=== PATIENT | female | born 1935 | race Caucasian/White ===

== ENCOUNTER 2017-10-20 14:06 | Inpatient (IN) | payer OTHER, MEDICARE ==
[~2017-10-20] VITALS: Ht 149.9 cm; Wt 68.1 kg
--- NOTE | ~2017-10-20 | EKG ---
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: [facility] : 1935 Requested By: Karli Irby Order Number: [id number] MD: Chuck Vasquez Measurements Intervals [place] Rate: 54 P: 28 [place]: 129 QRS: -40 QRSD: 98 T: 42 QT: 419 QTc: 398 Interpretive Statements Sinus bradycardia Left anterior fascicular block Left ventricular hypertrophy Compared to ECG 05/24/2013 18:33:31 No significant change was found Electronically Signed On 10-21-2017 8:30:12 CDT by Chuck Vasquez [email or web address] <ELECTRONICALLY SIGNED> By: Chuck Vasquez MD, [facility] 10/21/17 0830 1418 1418 Chuck Vasquez MD, [facility] /EPI
--- NOTE | ~2017-10-20 | 2DMMODE ---
[facility] [address] [place] [address] 2 D/M-MODE ECHOCARDIOGRAM Name: SHAY QUINTERO Veena Room #: 215-P [facility] IN M.R.#: [id number] Admission: 10/20/17 Attend Phys: Shaun Castillo MD Discharge: Date of : 37 Date of Service: 10/22/17 1256 Report #: [id number] THIS REPORT FOR: //name// APPROVED REPORT Study performed: 10/22/2017 12:17:04 EXAM: Comprehensive 2D, Doppler, and color-flow Echocardiogram Patient Location: Echo lab Room #: [facility] Status: routine BSA: 1.63 HR: 57 bpm BP: 105/65 mmHg Rhythm: NSR Other Information Study Quality: Good Indications Short of breath. Pulmonary HTN and/or possible shunt. Echo Enhancing Agent Indication: Rule out Shunt Agent(s) / Amount(s) Used: Agitated Saline 6 cc 2D Dimensions RVDd: 30.08 mm LVEF(%): 64.36 (>50%) IVSd: 11.06 (7-11mm) LVOT Diam: 19.75 (18-24mm) LVDd: 40.17 mm PWd: 9.28 (7-11mm) Ascending Ao: 28.95 (22-36mm) LVDs: 26.25 (25-40mm) Aortic Root: 32.18 mm Kulkarni's LVEF: 64.36 % Volumes Left Atrial Volume (Systole) Single Plane 4CH: 23.78 mL Single Plane 2CH: 30.67 mL LA ESV Index: 18.00 mL/m2 Aortic Valve AoV Peak Sheldon.: 1.37 m/s AO Peak Gr.: 7.52 mmHg LVOT Max P.28 mmHg LVOT Max V: 1.03 m/s JEOVANNY Vmax: 2.31 cm2 [facility] [place] [address] 2 D/M-MODE ECHOCARDIOGRAM Name: SHAY QUINTERO Room #: 215-P [facility]..#: [id number] Admission: 10/20/17 Attend Phys: Shaun Castillo MD Discharge: Date of : 37 Date of Service: 10/22/17 1256 Report #: [id number] Mitral Valve E/A Ratio: 0.7 MV Decel. Time: 232.54 ms MV E Max Sheldon.: 0.83 m/s MV A Sheldon.: 1.12 m/s MV PHT: 67.44 ms IVRT: 110.73 ms Pulmonary Valve PV Peak Sheldon.: 0.74 m/s PV Peak Gr.: 2.19 mmHg Pulmonary Vein P Vein S: 0.53 m/s P Vein A: 0.34 m/s P Vein D: 0.32 m/s P Vein A Dur.: 92.3 msec P Vein S/D Ratio: 1.66 Tricuspid Valve TR Peak Sheldon.: 2.35 m/s RAP Estimate: 5.00 mmHg TR Peak Gr.: 22.04 mmHg PA Pressure: 27.00 mmHg Left Ventricle The left ventricle is normal size. There is normal LV segmental wall motion. There is normal left ventricular wall thickness. Left ventricular systolic function is normal. LVEF is 55-60%. Mild diastolic dysfunction is present (impaired relaxation pattern). Right Ventricle The right ventricle is normal size. The right ventricular systolic function is normal. Atria The left atrium size is normal. No shunting noted by contrast bubble injection. The right atrium size is normal. Aortic Valve The Aortic valve is mildly sclerotic. Trace to mild aortic regurgitation. There is no aortic valvular stenosis. Mitral Valve The mitral valve is normal in structure. Mild mitral regurgitation. No evidence of mitral valve stenosis[place] [address] 2 D/M-MODE ECHOCARDIOGRAM Name: SHAY QUINTERO Room #: 215-P [facility] IN [facility]#: [id number] Admission: 10/20/17 Attend Phys: Shaun Castillo MD Discharge: Date of : 37 Date of Service: 10/22/17 1256 Report #: [id number] The tricuspid valve is normal in structure. Mild tricuspid regurgitation. Estimated PAP is 27mmHg. Pulmonic Valve Pulmonic valve is not well visualized. Trace pulmonic regurgitation. Great Vessels The aortic root is normal in size. The ascending aorta is normal in size. IVC is normal in size and collapses >50% with inspiration. Pericardium Small pericardial effusion is noted. <Conclusion> The left ventricle is normal size. LVEF is 55-60%. The left atrium size is normal. The right atrium size is normal. No shunting noted by contrast bubble injection. The Aortic valve is mildly sclerotic. Trace to mild aortic regurgitation. The mitral valve is normal in structure. Mild mitral regurgitation. The tricuspid valve is normal in structure. Mild tricuspid regurgitation. Estimated PAP is 27mmHg. Pulmonic valve is not well visualized. Trace pulmonic regurgitation. Small pericardial effusion is noted. <ELECTRONICALLY SIGNED> By: Guido Kam MD 10/22/17 1256 1256 1256 Guido Kam MD /INF
--- NOTE | ~2017-10-20 | HC ---
[facility] [place] [address] CONSULTATION Name: SHAY QUINTERO Room #: 215-P ADM IN M.R.#: [id number] Admission: 10/20/17 Attend Phys: Shaun Castillo MD Discharge: Date of : 37 Report #: [id number] THIS REPORT FOR: //name// CC: Shaun Alanis DATE OF SERVICE: 10/21/2017 REASON FOR CONSULTATION: 1. Dyspnea of 10 days' duration at rest and with exertion. 2. History of reflux. 3. Chest tightness. 4. Leukocytosis. 5. GERD. 6. History of chronic bronchitis. 7. Respiratory alkalosis. 8. Secondhand smoke. 9. Elevated D-dimer. PLAN: It is interesting that this occurred after knee and back injection; however, was not cervical injection. We will evaluate with venous Doppler. We will check an echo to look for pulmonary hypertension or any shunting. We will treat her for reflux. We will monitor her sat overnight, question CHANEL. Her tachycardia may be related to albuterol and we will stop this and use p.r.n. levalbuterol and Pulmicort. Reviewed again CT did not see any emboli with radiologist. HISTORY OF PRESENT ILLNESS: An 82-year-old female in normal state of health when had a knee steroid injection and a lumbar epidural done, about 2-3 days later developed this shortness of breath. No definite chest pain, but epigastric discomfort with a band feeling around. No definite reflux symptoms. No fever or chills. No palpitations. Positive dyspnea with and without exertion. PAST MEDICAL HISTORY AND SURGERIES: Include hysterectomy, tonsillectomy, cholecystectomy. HOME MEDICATIONS: Per chart included pseudoephedrine, sertraline, albuterol, prednisone, DuoNeb, atorvastatin, cholecalciferol, ibuprofen, Protonix, ranitidine, triazolam. ALLERGIES: SULFA. SOCIAL HISTORY: Negative tobacco, but positive history of secondhand smoke. ETOH: None. [facility] [address] [place] [address] CONSULTATION Name: SHAY QUINTERO Room #: [address] [place] [address] [place] [facility].#: [id number] Admission: 10/20/17 Attend Phys: Shaun Castillo MD Discharge: Date of : 37 Report #: [id number] REVIEW OF SYSTEMS: No fever, chills or night sweats. No vision change. Did have a headache initially, not current. No hemoptysis or sputum production. Positive history of chronic bronchitis. Positive reflux. No definite ulcer. GENITOURINARY: No dysuria. PHYSICAL EXAMINATION: EYES: Negative icterus. NECK: Negative JVD. LUNGS: No wheeze or rhonchi. HEART: Regular. ABDOMEN: Bowel sounds present. EXTREMITIES: Showed no edema, but by report on first day she did have edema. DATA: D-dimer initially 1.83. White count 15.3. Hemoglobin 15.5. BUN 23, creatinine 1.1. Lipase 298, albumin 4, no eosinophils. CT did not show any emboli. Did show some atelectasis described. <ELECTRONICALLY SIGNED> By: Caryn Saldaña MD 10/22/17 1550 1813 2328 Caryn Saldaña MD /nt
[~2017-10-20 14:06] MED LIST: ALBUTEROL2.5 MG/0.5; ASPIRIN EC81 M1 PO; AZITHROMYCIN 2250 MG PO; DIAZEPAM 5 MG5 MG PO; HALCION0.125 MG; HYDROCODON-ACE1 EAC7; MULTIVITAMINS1 EAC7 PO; NORCO 5-325 TA1 EACH PO; SUDAFED30 MG PO; VIBRAMYCIN 100100 MG PO; ZOLOFT 50 MG TA50 M1 PO
[2017-10-20 14:08] VITALS: BP 131/74
[2017-10-20] MEDS ORDERED: PREDNISONE 20 M20 MG PO (14:26)
[2017-10-20] MEDS ORDERED: ATORVASTATIN CA40 MG PO (14:27)
[2017-10-20] MEDS ORDERED: IPRAT-ALBUT 0.5-3 ML INH (14:27)
[2017-10-20] MEDS ORDERED: VITAMIN D3400 UNIT PO (14:28)
[2017-10-20] MEDS ORDERED: ALLEGRA-D 12 H1 EAC1 PO (14:28)
[2017-10-20] MEDS ORDERED: IBU600 MG PO (14:28)
[2017-10-20] MEDS ORDERED: ZANTAC 150MG T150 MG PO (14:29)
[2017-10-20] MEDS ORDERED: HALCION0.25 MG PO (14:29)
[2017-10-20] MEDS ORDERED: PROTONIX40 M1 PO (14:29)
[2017-10-20 14:37] LABS: ABSOLUTE NEUTROPHILS 11.1 thou/uL (1.4-8.2); HEMATOCRIT 45.8 % (37.0-47.0); HEMOGLOBIN 15.5 gm/dL (12.0-15.0); LYMPHOCYTES 22.2 % (24.0-44.0); MCH 30.5 pg (26.0-34.0); MCHC 33.9 g/dL (28.0-37.0); MCV 89.9 fL (80.0-100.0); MONOCYTES 5.3 % (1.0-8.0); PLATELET COUNT 331 thou/uL (150-400); POLYS 72.5 % (36.0-66.0); RBC 5.09 mil/uL (4.20-5.00); RDW 14.6 % (10.5-14.5); WBC 15.3 thou/uL (4.0-11.0)
[2017-10-20 14:42] LABS: ANION GAP 13 mmol/L (7-16); BUN 23 mg/dL (7-18); CALCIUM 9.5 mg/dL (8.5-10.1); CHLORIDE 104 mmol/L (98-107); CO2 24 mmol/L (21-32); CREATININE 1.1 mg/dL (0.6-1.0); GLUCOSE 99 mg/dL (74-106); POTASSIUM 3.5 mmol/L (3.5-5.1); SODIUM 141 mmol/L (136-145)
[2017-10-20 14:52] LABS: TROPONIN-I <0.06 ng/mL (<0.06)
[2017-10-20 15:40] LABS: DIRECT BILIRUBIN 0.2 mg/dL (<0.1-0.3); TOTAL BILIRUBIN 0.9 mg/dL (<0.1-1.0); TOTAL PROTEIN 7.4 g/dL (6.4-8.2)
[2017-10-20 17:26] VITALS: BP 158/63
[2017-10-20 18:45] VITALS: BP 144/73
[2017-10-20 18:50] VITALS: BP 144/73
[2017-10-20 23:43] VITALS: BP 117/71
[2017-10-21 01:28] LABS: HEMATOCRIT 42.8 % (37.0-47.0); HEMOGLOBIN 14.9 gm/dL (12.0-15.0); MCH 30.9 pg (26.0-34.0); MCHC 34.8 g/dL (28.0-37.0); MCV 88.8 fL (80.0-100.0); RBC 4.82 mil/uL (4.20-5.00); RDW 14.1 % (10.5-14.5); WBC 14.6 thou/uL (4.0-11.0)
[2017-10-21 01:47] LABS: CALCIUM 8.6 mg/dL (8.5-10.1); CREATININE 1.2 mg/dL (0.6-1.0); POTASSIUM 4.1 mmol/L (3.5-5.1)
[2017-10-21 05:14] VITALS: BP 108/58
[2017-10-21 07:27] VITALS: BP 105/63
[2017-10-21 11:43] VITALS: BP 114/63
[2017-10-21 16:19] VITALS: BP 95/67
[2017-10-21 16:21] LABS: BE(vivo) -2.3 mmol/L (-2 to +3); HCO3 18.5 mmol/L (22.0-26.0); PO2 67.3 mmHg (80.0-100.0); pH 7.515 (7.360-7.450); sO2 95.4 % (92.0-98.0)
[2017-10-21 16:22] LABS: PCO2 23.4 mmHg (35.0-45.0)
[2017-10-21 18:28] LABS: ALBUMIN 3.6 g/dL (3.4-5.0); DIRECT BILIRUBIN 0.2 mg/dL (<0.1-0.3); TOTAL BILIRUBIN 1.2 mg/dL (<0.1-1.0); TOTAL PROTEIN 6.7 g/dL (6.4-8.2)
[2017-10-21 19:30] VITALS: BP 104/63
[2017-10-22 03:51] LABS: CALCIUM 7.7 mg/dL (8.5-10.1); CREATININE 1.1 mg/dL (0.6-1.0); POTASSIUM 4.2 mmol/L (3.5-5.1)
[2017-10-22 04:45] VITALS: BP 105/65
[2017-10-22 13:27] LABS: HCO3 18.7 mmol/L (22.0-26.0); PCO2 25.8 mmHg (35.0-45.0); PO2 97.6 mmHg (80.0-100.0); pH 7.479 (7.360-7.450); sO2 97.9 % (92.0-98.0)
[2017-10-22 20:00] VITALS: BP 116/75
[2017-10-23 04:37] VITALS: BP 113/60
[2017-10-23 08:05] VITALS: BP 113/64
[2017-10-23] MEDS ORDERED: XANAX 0.5 MG0.5 MG PO (12:18)
[2017-10-23 13:46] VITALS: BP 113/64
== END 2017-10-23 15:00 | disposition home or self-care (01) | DRG 189 ==
LOC: ER 14:06 → EROBS 16:54 → 2N 16:54 → ENTRNSPT 10-23 14:11 → EDTRNSPTSTS 10-23 14:17 → EDTRNSPT 10-23 14:58 → 2N 10-23 15:00
PROVIDERS: Emergency Medicine; Hospitalist; Internal Medicine Pulmonary Disease
DX: J96.01 Acute respiratory failure with hypoxia (principal); E87.3 Alkalosis; F41.1 Generalized anxiety disorder; J45.909 Unspecified asthma, uncomplicated; K21.9 Gastro-esophageal reflux disease without esophagitis; D72.829 Elevated white blood cell count, unspecified; Z77.22 Contact with and (suspected) exposure to environmental tobacco smoke (acute) (chronic); T38.0X5A Adverse effect of glucocorticoids and synthetic analogues, initial encounter; Z79.899 Other long term (current) drug therapy; Z90.710 Acquired absence of both cervix and uterus; Z90.49 Acquired absence of other specified parts of digestive tract; Z88.2 Allergy status to sulfonamides
CPT/HCPCS: 10081

== ENCOUNTER → 2018-01-09 | Outpatient (CLI) | payer OTHER, MEDICARE ==
[~2018-01-09] MED LIST changes: +ALLEGRA-D 12 H1 EAC1 PO; +ATORVASTATIN CA40 MG PO; +HALCION0.25 MG PO; +IBU600 MG PO; +IPRAT-ALBUT 0.5-3 ML INH; +PREDNISONE 20 M20 MG PO; +PROTONIX40 M1 PO; +VITAMIN D3400 UNIT PO; +XANAX 0.5 MG0.5 MG PO; +ZANTAC 150MG T150 MG PO
--- NOTE | ~2018-01-09 | MCT ---
[facility] [address] [place] [address] METHACHOLINE CHALLENGE TEST Name: SHAY QUINTERO [facility] [id number] Admission: 01/09/18 Attend Phys: Tee Mendez MD Discharge: Date of : 36 Report #: [id number] THIS REPORT FOR: //name// Height: in Exam Date: Weight: lbs BTPS: X >> PRE BRONCHODILATOR: PREDICTED BEST %PRED FORCED VITAL CAPACITY (FRC) L LPM % FORCED EXP VOL/SEC (FEV1) L FEV/FVC % MAX MID-EXP FLOW (FEF 25-75) L/SEC L/SEC % PEAK EXP FLOW RATE (FEF MAX) L/MIN L/MIN MED-VC RATIO (FEF 50/FEF 50) .09 Baseline: Phenol Saline Level 1: 0.025 mg/ml BEST %PRED %CHANGE BEST %PRED %CHANGE FVC L % % FVC L % % FEV1 L % % FEV1 L % % Level 2: 0.25 mg/ml Level 3: 2.5 mg/ml BEST %PRED %CHANGE BEST %PRED %CHANGE FVC L % % FVC L % % FEV1 L % % FEV1 L % % . Level 4: 10 mg/ml Level 5: 25 mg/ml BEST %PRED %CHANGE BEST %PRED %CHANGE FVC L % % FVC L % % FEV1 L % % FEV1 L % % Post Bronchodilator: 1st Treatment Post Bronchodilator: 2nd Treatment BEST %PRED %CHANGE BEST %PRED %CHANGE FVC L % % FVC L % % FEV1 L % % FEV1 L % % Post Bronchodilator: 3rd Treatment BEST %PRED %CHANGE FVC L % % FEV1 L % % >> INTERPRETATION: [facility] [address] [place] [address] METHACHOLINE CHALLENGE TEST Name: SHAY QUINTERO Veena Room #: REG [facility] Juvenal#: [id number] Admission: 01/09/18 Attend Phys: Tee Mendez MD Discharge: Date of : 36 Report #: [id number] CC: Mitchell Mendez DATE OF SERVICE: 01/09/2018 Increasing doses of methacholine was used for bronchoprovocation challenge. Baseline FEV1 is 1.49 liters. With increasing doses of methacholine, devora was 1.32 liters with a total of 17% change. Minimal response to bronchodilator therapy. OVERALL IMPRESSION: Negative methacholine challenge test. There was some mild response to methacholine challenge; however, not significant. Suggest mildly responsive reactive airways. Please correlate clinically. By: Harsha Qureshi MD /nt
== END ==
LOC: PUL 08:47
DX: R06.02 Shortness of breath (principal)

== ENCOUNTER 2020-10-17 14:24 | Inpatient (IN) | payer OTHER, MEDICARE ==
[~2020-10-17] VITALS: Ht 154.9 cm; Wt 66.7 kg
[~2020-10-17 14:24] MED LIST changes: +CENTRUM ADULTS1 EACH PO; +LEVO-T25 MCG PO; +NORCO 10-325 T1 EACH PO; +NORCO 5-325 TA1 EAC1 PO; +SENNA PLUS TAB1 EACH PO; +VITAMIN B-121000 MC2 PO; +VITAMIN D250000 UNIT PO; +ZOLOFT50 M1 PO
[2020-10-17 14:25] VITALS: BP 161/71
[2020-10-17 14:54] LABS: ABSOLUTE NEUTROPHILS 4.6 thou/uL (1.4-8.2); BASOPHILS 0.8 % (0.0-2.0); EOSINOPHILS 1.3 % (0.0-3.0); HEMATOCRIT 43.5 % (37.0-47.0); HEMOGLOBIN 15.2 gm/dL (12.0-15.0); MCH 31.7 pg (26.0-34.0); MCHC 34.9 g/dL (28.0-37.0); MCV 90.9 fL (80.0-100.0); PLATELET COUNT 250 thou/uL (150-400); POLYS 71.9 % (36.0-66.0); RBC 4.79 mil/uL (4.20-5.00); RDW 13.1 % (10.5-14.5); WBC 6.3 thou/uL (4.0-11.0)
[2020-10-17 15:08] LABS: CREATININE 0.8 mg/dL (0.6-1.0); POTASSIUM 4.1 mmol/L (3.5-5.1)
[2020-10-17] MEDS ORDERED: CALCIUM500 MG PO (15:08)
[2020-10-17] MEDS ORDERED: PLAQUENIL200 MG PO (15:09)
[2020-10-17] MEDS ORDERED: FLONASE 0.05%50 MCG NARES (15:09)
[2020-10-17] MEDS ORDERED: FLEXERIL PO (15:09)
[2020-10-17] MEDS ORDERED: LEVO-T50 MCG PO (15:09)
[2020-10-17 15:18] LABS: TROPONIN-I 0.25 ng/mL (<0.06)
--- NOTE | 2020-10-17 15:44 | EKG ---
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 10/17/20 1544 1516 1516 Gunner Edwards MD, [facility]ACC /EPI
[2020-10-17 19:43] VITALS: BP 131/63
[2020-10-17 20:36] VITALS: BP 148/63
[2020-10-17 22:15] VITALS: BP 143/73
[2020-10-18 04:45] VITALS: BP 125/64
--- NOTE | 2020-10-18 06:02 | NUR ---
PT ARRIVED TO ROOM 216 WITH FAMILY AT BEDSIDE, IV FLUIDS INFUSING, MED CRUSHED IN APPLESAUCE, NPO AFTER MNOC FOR NUC ST AND POSSIBLE EGD IN AM, CONSULTS SAW PT IN ER, HYDROCODONE GIVEN FOR ESHOPHOGITIS PAIN, RESTING QUIETLY IN ROOM, VSS, UP ADLIB TO BR WITH OUT DIFFICULTY, WILL CON'T TO MONITOR PER PPOC.
[2020-10-18 08:00] VITALS: BP 127/58
[2020-10-18 16:00] VITALS: BP 144/64
--- NOTE | 2020-10-18 17:48 | NUR ---
Met with patient, family at bedside. Patient reports she lives with family in independent home. She uses no assistive device, she cont to drive. She reports steps in home with no difficulty. Gave information regarding advance directives. Discussed role of casemgt. Patient anticipates no needs at dc.
--- NOTE | 2020-10-18 19:48 | NUR ---
RECEIVED THE PATIENT CONSCIOUS AND ORIENTED.ON ROOM AIR BREATHING SPONTANEOUSLY.NOT IN PAIN OR DISTRESS.HAD STRESS TEST TODAY, CAME OUT NEGATIVE, HAD EGD AFTERWARDS.ALL DUE MEDICATIONS GIVEN AFTER THE PROCEDURES PATIENT WAS ON NPO IN THE MORNING.ALL NEEDS ATTENDED.
[2020-10-18 20:15] VITALS: BP 120/68
[2020-10-19 04:45] VITALS: BP 133/67
[2020-10-19 08:00] VITALS: BP 126/58
[2020-10-19] MEDS ORDERED: PEPCID20 MG PO (10:55)
[2020-10-19] MEDS ORDERED: RESTORIL30 MG PO (10:55)
[2020-10-19 11:55] VITALS: BP 126/58
--- NOTE | 2020-10-19 12:24 | NUR ---
RECEIVED THE PATIENT CONSCIOUS AND ORIENTED.ON ROOM AIR BREATHING SPONTANEOUSLY.NOT IN PAIN OR DISRESS.PATTIENT HAD HER MEAL WITHOUT HAVING DIFFICULTY AND WITHOUT CHOKING.WAS ABLE TO SWALLOW HER MORNING MEDICATIONS.ALL NEEDS ATTENDED. FACILAITED DISCHARGE.DISCHARGE PACKET GIVEN AND EVERYTHING EXPLAINED TO THE PATIENT.
--- NOTE | 2020-10-19 13:24 | P ---
[facility] [place] [address] PROCEDURE REPORT Name: SHAY QUINTERO Room #: 216-P [facility] IN M.R.#: [id number] Admission: 10/17/20 Attend Phys: Mary Barrios MD Discharge: 10/19/20 Date of : 36 Report #: [id number] THIS REPORT FOR: cc: Mitchell Alanis MD, Michael L. MD McElhinney, Christian C. MD ~ cc: Mitchell Alanis MD, Chuck Vasquez MD LOCATED WITHIN [facility] DATE OF SERVICE: 10/18/2020 PROCEDURE PERFORMED: Upper endoscopy with esophageal dilation. HISTORY OF PRESENT ILLNESS: The patient is an 85-year-old female, who was in the Emergency Room yesterday with dysphagia, had chest discomfort after swallowing Pop-Tarts and then later Pb Crackers. I evaluated the patient in the Emergency Room, and she was able to drink water. The plan was for her to be discharged home and then have upper endoscopy today as an outpatient; however, because of her chest discomfort, she had further workup. She did have mild elevation in her troponin through the Emergency Room with a value being 0.12, repeat 0.06. Cardiology has evaluated the patient, Dr. Vasquez. She underwent EKG as well as a stress echocardiogram that was negative. Plan is for upper endoscopy with dilation. DESCRIPTION OF PROCEDURE: The risks and benefits of the procedure were explained to the patient, those risks including but not limited to bleeding, perforation, and the risk of sedation. She understood these risks and gave informed consent. Sedation was given using propofol per anesthesia. Next, using a standard Olympus upper endoscope, the scope was placed in the patient's mouth and advanced under direct vision through the esophagus, stomach and into the second portion of the duodenum. The larynx was normal in appearance. There was mild narrowing in the upper esophagus, and mid esophagus was normal. In the distal esophagus, a mild Schatzki's ring was noted. No evidence of esophagitis. Upon entering the stomach, a etivy-fz-puuzhn size hiatal hernia was noted. Overall, the gastric mucosa was normal. The pylorus was normal and patent. The duodenal bulb, first and second portion were all normal. The scope was then brought back up into the patient's stomach and a Savary guidewire was inserted through the scope, leaving the guidewire in place as the scope was then withdrawn. Next, a 51-Chinese Savary dilation of the esophagus was then performed without difficulty. The wire and dilator removed. The scope was reintroduced into the patient's stomach. There was a small mucosal tear noted in the proximal esophagus. No bleeding. Also, a small tear of the Schatzki's ring as well. No bleeding. No further dilations were performed. At this point, the scope was then withdrawn and the procedure terminated. The patient tolerated the procedure well. IMPRESSION: [facility] [address] [place] [address] PROCEDURE REPORT Name: SHAY QUINTERO Room #: 216-P [facility] IN ..#: [id number] Admission: 10/17/20 Attend Phys: Mary Barrios MD Discharge: 10/19/20 Date of : 37 Report #: [id number] 1. Mild narrowing, upper esophagus. 2. Mild Schatzki's ring at the GE junction. 3. Giaiv-ha-ftfrtq size hiatal hernia. 4. Otherwise, normal upper endoscopy. RECOMMENDATIONS: 1. Observe the patient post-procedure. 2. Repeat on a p.r.n. basis. Thank you for allowing me to participate in her care. <ELECTRONICALLY SIGNED> By: Paul Ojeda MD 10/19/20 1324 1520 2334 Paul Ojeda MD /nt
== END 2020-10-19 12:27 | disposition home or self-care (01) | DRG 391 ==
LOC: ER 14:24 → EROBS 17:54 → 2N 17:54
PROVIDERS: Emergency Medicine; ADMIT Hospitalist; ATTEND Hospitalist
PROC: 0D718DZ Dilation of Upper Esophagus with Intraluminal Device, Via Natural or Artificial Opening Endoscopic (ICD-10-PCS; principal; 2020-10-18)
DX: K22.2 Esophageal obstruction (principal); I21.4 Non-ST elevation (NSTEMI) myocardial infarction; R13.10 Dysphagia, unspecified; J45.909 Unspecified asthma, uncomplicated; E03.9 Hypothyroidism, unspecified; M19.90 Unspecified osteoarthritis, unspecified site; F41.9 Anxiety disorder, unspecified; K44.9 Diaphragmatic hernia without obstruction or gangrene; M06.9 Rheumatoid arthritis, unspecified; K21.9 Gastro-esophageal reflux disease without esophagitis; D72.829 Elevated white blood cell count, unspecified; R53.81 Other malaise; N39.46 Mixed incontinence; G47.00 Insomnia, unspecified; Z90.710 Acquired absence of both cervix and uterus; Z90.49 Acquired absence of other specified parts of digestive tract; Z88.2 Allergy status to sulfonamides; Z86.010 Personal history of colon polyps; Z79.82 Long term (current) use of aspirin; Z79.899 Other long term (current) drug therapy; Z20.822 Contact with and (suspected) exposure to COVID-19
CPT/HCPCS: 10081; 62110; 62900; 70005

== ENCOUNTER 2020-11-01 12:04 | Emergency (ER) | payer OTHER, MEDICARE ==
[~2020-11-01] VITALS: Ht 165.1 cm; Wt 65.8 kg
[~2020-11-01 12:04] MED LIST changes: +CALCIUM500 MG PO; +FLEXERIL PO; +FLONASE 0.05%50 MCG NARES; +LEVO-T50 MCG PO; +PEPCID20 MG PO; +PLAQUENIL200 MG PO; +RESTORIL30 MG PO
[2020-11-01 12:40] LABS: ABSOLUTE NEUTROPHILS 4.6 thou/uL (1.4-8.2); HEMATOCRIT 43.4 % (37.0-47.0); HEMOGLOBIN 14.8 gm/dL (12.0-15.0); LYMPHOCYTES 21.7 % (24.0-44.0); MCH 31.2 pg (26.0-34.0); MCHC 34.2 g/dL (28.0-37.0); MCV 91.3 fL (80.0-100.0); MONOCYTES 5.4 % (1.0-8.0); PLATELET COUNT 249 thou/uL (150-400); POLYS 70.9 % (36.0-66.0); RBC 4.75 mil/uL (4.20-5.00); RDW 13.2 % (10.5-14.5); WBC 6.5 thou/uL (4.0-11.0)
[2020-11-01 12:58] LABS: CALCIUM 9.2 mg/dL (8.5-10.1); CREATININE 0.9 mg/dL (0.6-1.0)
[2020-11-01 13:02] LABS: ALBUMIN 4.3 g/dL (3.4-5.0); TOTAL BILIRUBIN 0.6 mg/dL (0.2-1.0); TOTAL PROTEIN 7.3 g/dL (6.4-8.2)
[2020-11-01 14:06] VITALS: BP 164/73
== END 2020-11-01 14:06 | disposition home or self-care (01) ==
LOC: ER 12:04
PROVIDERS: Student in an Organized Health Care Education/Training Program
DX: R07.89 Other chest pain (principal); R53.1 Weakness; Z90.711 Acquired absence of uterus with remaining cervical stump; Z90.89 Acquired absence of other organs; J45.909 Unspecified asthma, uncomplicated; Z90.49 Acquired absence of other specified parts of digestive tract; Z79.891 Long term (current) use of opiate analgesic; Z79.51 Long term (current) use of inhaled steroids; Z79.1 Long term (current) use of non-steroidal anti-inflammatories (NSAID); Z79.899 Other long term (current) drug therapy; Z88.2 Allergy status to sulfonamides

== ENCOUNTER → 2020-11-08 | Outpatient (CLI) | payer OTHER, MEDICARE | LOC: RAD 09:40 | PROVIDERS: ATTEND Specialist | DX: K44.9 Diaphragmatic hernia without obstruction or gangrene (principal); K30 Functional dyspepsia ==

== ENCOUNTER → 2020-11-24 | Outpatient (CLI) | payer OTHER, MEDICARE ==
[~2020-11-24] VITALS: Ht 149.9 cm; Wt 62.1 kg
[~2020-11-24] MED LIST changes: -ALBUTEROL2.5 MG/0.5; +ALBUTEROL2.5 MG/0.5 INH; +HYOSCYAMINE0.125 MG PO; +NORCO5 PO
--- NOTE | 2020-11-27 17:53 | P ---
[facility] [place] [address] PROCEDURE REPORT Name: SHAY QUINTERO Room #: REG [facility]INN[facility]anne [facility]#: [id number] Admission: 11/24/20 Attend Phys: Paul Larose Discharge: Date of : 37 Report #: [id number] THIS REPORT FOR: cc: Mitchell Alanis MD,Paul Orantes MD, MD ~ cc: Mitchell Alanis MD DATE OF SERVICE: 11/24/2020 PROCEDURE PERFORMED: Upper endoscopy with esophageal dilation. HISTORY OF PRESENT ILLNESS: The patient is an 85-year-old female with dysphagia, who underwent an upper endoscopy by myself on 10/18/2020 for similar symptoms. EGD at that time showed a mild Schatzki's ring, a small to medium size hiatal hernia, esophageal dilation with 51-Taiwanese was performed at that time. This did cause a small mucosal tear in the proximal esophagus where there was a mild narrowing as well as a small tear at the Schatzki's ring. No evidence of bleeding. Post-procedure, the patient was complaining of pain. She has since then had mild improvement in her symptoms, but continues on a pureed diet because she is concerned of eating solids. She did undergo an upper GI with small-bowel follow-through on 11/08/2020. This showed single contrast was performed. Esophagus was normal in diameter with free flow of contrast material throughout the esophagus. A barium tablet had delayed transit across the area of the aortic knob. A slightly delayed transit at the distal GE junction, small hiatal hernia was noted. No evidence of reflux was noted. No high-grade stricture seen. Small-bowel follow-through was normal. Plan is to repeat upper endoscopy with dilation at this time. DESCRIPTION OF PROCEDURE: The risks and benefits of the procedure were explained to the patient, those risks including but not limited to bleeding, perforation and the risk of sedation. She understood these risks and gave informed consent. Sedation was given using propofol per anesthesia. Next, using a standard Olympus upper endoscope, the scope was placed in the patient's mouth and advanced under direct vision through the esophagus, stomach and into the second portion of the duodenum. The larynx was normal in appearance. Again, a mild narrowing was noted in the proximal esophagus. The mid esophagus was normal. Again, a mild Schatzki's ring was noted at the GE junction. No evidence of inflammation. A small hiatal hernia was again noted. Overall, the gastric mucosa was normal. The pylorus was normal and patent. The duodenal bulb, first and second portion were all normal. The scope was then brought back up into the patient's stomach and a Savary guidewire was inserted through the scope, leaving the guidewire in place as the scope was then withdrawn. Next, a 51-Taiwanese Savary dilation of the esophagus was performed without difficulty. The wire and dilator removed. The scope was reintroduced into the patient's stomach, a small mucosal tear was noted in the proximal esophagus. No evidence [facility] [address] [place] [address] PROCEDURE REPORT Name: SHAY QUINTERO Room #: REG [facility] Juvenal#: [id number] Admission: 11/24/20 Attend Phys: Paul Larose Discharge: Date of : 37 Report #: [id number] of bleeding. Again, a small tiny tear was noted at the Schatzki's ring. No evidence of bleeding. At this point, the scope was then withdrawn and the procedure terminated. The patient tolerated the procedure well. IMPRESSION: 1. Mild narrowing of proximal esophagus. 2. Mild Schatzki's ring. 3. Hiatal hernia. RECOMMENDATIONS: 1. Observe the patient post-dilation. 2. If the patient reports no significant improvement, we discussed proceeding with a possible esophageal manometry at that point. Thank you for allowing me to participate in her care. <ELECTRONICALLY SIGNED> By: Paul Ojeda MD 11/27/20 1753 0748 2035 Paul Ojeda MD /nt
== END | disposition home or self-care (01) ==
LOC: GI 07:00
PROVIDERS: ATTEND Specialist
DX: R13.10 Dysphagia, unspecified (principal); K22.2 Esophageal obstruction; K44.9 Diaphragmatic hernia without obstruction or gangrene; I10 Essential (primary) hypertension; E03.9 Hypothyroidism, unspecified; I25.2 Old myocardial infarction; E78.5 Hyperlipidemia, unspecified; J45.909 Unspecified asthma, uncomplicated; K21.9 Gastro-esophageal reflux disease without esophagitis; Z98.890 Other specified postprocedural states; Z79.899 Other long term (current) drug therapy; Z90.49 Acquired absence of other specified parts of digestive tract; Z90.710 Acquired absence of both cervix and uterus; Z88.2 Allergy status to sulfonamides; Z20.822 Contact with and (suspected) exposure to COVID-19
CPT/HCPCS: 62110; 62900

== ENCOUNTER → 2021-02-16 | Outpatient (CLI) | payer OTHER, MEDICARE ==
[~2021-02-16] VITALS: Ht 149.9 cm; Wt 60.8 kg
[~2021-02-16] MED LIST changes: -ATORVASTATIN CA40 MG PO; +LIPITOR40 MG PO; +PROAIR HFA8.5 GM INH; -VITAMIN D3400 UNIT PO; +VITAMIN D350 MC3 PO
--- NOTE | 2021-02-19 13:21 | P ---
[facility] [place] [address] PROCEDURE REPORT Name: SHAY QUINTERO Room #: REG [place] Juvenal#: [id number] Admission: 02/16/21 Attend Phys: Paul Larose Discharge: Date of : 37 Report #: [id number] THIS REPORT FOR: cc: Mitchell Alanis MD, Michael L. MD McElhinney, Christian C. MD ~ cc: Mitchell Alanis MD DATE OF SERVICE: 02/16/2021 PROCEDURE PERFORMED: Upper endoscopy with esophageal dilation. HISTORY OF PRESENT ILLNESS: The patient is an 85-year-old female with recurrent dysphagia. She has undergone 2 upper endoscopies with dilations by myself, which have been helpful, but she continues to have significant dysphagia. Both times, dilation was performed, did cause a mucosal tear. She did notice some mild chest pain after the dilation, but again, it was helpful. We have discussed about proceeding with possible manometry for her dysphagia as well. She underwent an upper GI and small bowel series on 11/08/2020. Esophagus at that time was normal in diameter with free flow of contrast material through the esophagus. Small hiatal hernia noted. A barium tablet had delayed transit across the area of the aortic knob and slightly delayed transit at the distal gastroesophageal junction. Plan is for repeat upper endoscopy with dilation. DESCRIPTION OF PROCEDURE: The risks and benefits of the procedure were explained to the patient. Those risks including but not limited to bleeding, perforation and the risk of sedation. She understood these risks and gave informed consent. Sedation was given using propofol per anesthesia. Next, using a standard Olympus upper endoscope, the scope was placed in the patient's mouth and advanced under direct vision through the esophagus, stomach and into the second portion of the duodenum. The larynx was normal in appearance. The upper and mid esophagus was again normal in appearance. There was a mild Schatzki's ring again noted in the distal esophagus, a small hiatal hernia was again noted. Overall, the gastric mucosa was normal. The pylorus was normal and patent. The duodenal bulb, first and second portion were all normal. The scope was then brought back up into the patient's stomach and a Savary guidewire was inserted through the scope, leaving the guidewire in place as the scope was then withdrawn. Next, a 51-Syriac Savary dilation was then performed of the esophagus without difficulty. The wire and dilator removed. The scope was reintroduced into the patient's stomach. A small mucosal tear without bleeding was noted in the proximal esophagus, similar to previous dilations. No tear was noted at the Schatzki's ring. At this point, the scope was then withdrawn and the procedure terminated. The patient tolerated the procedure well. IMPRESSION: 1. Mild Schatzki's ring. [facility] [address] [place] [address] PROCEDURE REPORT Name: ZAHIDA QUINTEROJIMENA Curiel Room #: REG [facility] Juvenal#: [id number] Admission: 02/16/21 Attend Phys: Paul Larose Discharge: Date of : 37 Report #: [id number] 2. Small hiatal hernia. 3. Otherwise, normal upper endoscopy. RECOMMENDATIONS: 1. Observe the patient post-dilation. 2. The patient has continued dysphagia. As we have discussed before, I would recommend proceeding next with esophageal manometry test. Thank you for allowing me to participate in her care. <ELECTRONICALLY SIGNED> By: Paul Ojeda MD 02/19/21 1321 1003 2133 Paul Ojeda MD /nt
== END | disposition home or self-care (01) ==
LOC: GI 08:13
PROVIDERS: ATTEND Specialist
DX: R13.10 Dysphagia, unspecified (principal); K22.2 Esophageal obstruction; K44.9 Diaphragmatic hernia without obstruction or gangrene; E78.5 Hyperlipidemia, unspecified; K21.9 Gastro-esophageal reflux disease without esophagitis; F32.9 Major depressive disorder, single episode, unspecified; E03.9 Hypothyroidism, unspecified; J45.909 Unspecified asthma, uncomplicated; Z98.890 Other specified postprocedural states; Z79.899 Other long term (current) drug therapy; Z20.822 Contact with and (suspected) exposure to COVID-19; Z90.49 Acquired absence of other specified parts of digestive tract; Z90.710 Acquired absence of both cervix and uterus; Z88.2 Allergy status to sulfonamides
CPT/HCPCS: 62110; 62900

== ENCOUNTER → 2021-03-15 | Outpatient (CLI) | payer OTHER, MEDICARE | END | disposition home or self-care (01) | LOC: GI 09:29 | PROVIDERS: ATTEND Internal Medicine Gastroenterology | DX: R13.19 Other dysphagia (principal); I25.2 Old myocardial infarction; Z98.890 Other specified postprocedural states; Z79.899 Other long term (current) drug therapy; Z20.822 Contact with and (suspected) exposure to COVID-19; Z88.2 Allergy status to sulfonamides ==